=== PATIENT | female | born 1985 | race American Indian/Alaskan Native ===

== ENCOUNTER 2016-11-03 11:29 | Emergency (ER) | payer OTHER ==
[~2016-11-03] VITALS: Ht 165.1 cm; Wt 44.0 kg
[2016-11-03 16:23] VITALS: BP 97/67
== END 2016-11-03 16:23 | disposition home or self-care (01) ==
LOC: ED 11:29
DX: S06.0X9A Concussion with loss of consciousness of unspecified duration, initial encounter (principal); G43.909 Migraine, unspecified, not intractable, without status migrainosus; F41.9 Anxiety disorder, unspecified; F17.210 Nicotine dependence, cigarettes, uncomplicated; Z88.8 Allergy status to other drugs, medicaments and biological substances; Z79.899 Other long term (current) drug therapy; V49.50XA Passenger injured in collision with unspecified motor vehicles in traffic accident, initial encounter; Y93.89 Activity, other specified; Y92.89 Other specified places as the place of occurrence of the external cause; Y99.8 Other external cause status
CPT/HCPCS: J0780; J1885

== ENCOUNTER 2017-04-11 21:56 | Emergency (ER) | payer OTHER ==
[2017-04-11 22:50] LABS: CALCIUM 8.4 mg/dL (8.5-10.1); CARBON DIOXIDE 24.5 mmol/L (21-32); CHLORIDE SERUM 111 mmol/L (98-107); CREATININE SERUM 0.7 mg/dL (0.6-1.0); GFR1 > 60 mL/min; GLUCOSE SERUM 102 mg/dL (74-106); POTASSIUM SERUM 3.7 mmol/L (3.5-5.1); SODIUM SERUM 145 mmol/L (136-145)
[2017-04-12 03:52] VITALS: BP 95/58
== END 2017-04-12 03:52 | disposition home or self-care (01) ==
LOC: ED 21:56
PROVIDERS: Emergency Medicine
DX: F43.20 Adjustment disorder, unspecified (principal); F10.129 Alcohol abuse with intoxication, unspecified; R11.2 Nausea with vomiting, unspecified; Z88.8 Allergy status to other drugs, medicaments and biological substances
CPT/HCPCS: 36415; G0480; Q0162

== ENCOUNTER 2018-01-05 23:05 | Emergency (ER) | payer OTHER ==
[~2018-01-05] VITALS: Ht 165.1 cm; Wt 44.0 kg
[2018-01-05 23:09] VITALS: Ht 165.1 cm; Wt 44.0 kg
[2018-01-06 01:07] VITALS: BP 113/73
[2018-01-06 01:11] LABS: microscopic required? YES; urine erythrocyte TRACE (NEGATIVE)
== END 2018-01-06 01:19 | disposition home or self-care (01) ==
LOC: ED 23:05
PROVIDERS: Emergency Medicine
DX: N39.0 Urinary tract infection, site not specified (principal); Z88.8 Allergy status to other drugs, medicaments and biological substances
CPT/HCPCS: J3030

== ENCOUNTER 2018-04-05 10:33 | Emergency (ER) | payer OTHER ==
[~2018-04-05] VITALS: Ht 165.1 cm; Wt 43.7 kg
[2018-04-05 10:51] VITALS: Ht 165.1 cm; Wt 43.7 kg
[2018-04-05 12:27] LABS: BASOPHIL % 0.4 % (0-2); PLATELET COUNT 227 x10^3mcL (130-400); RED CELL DISTRIBUTION WIDTH 14.1 % (11.5-14.5)
[2018-04-05 12:40] LABS: CALCIUM 7.7 mg/dL (8.5-10.1); CARBON DIOXIDE 27.7 mmol/L (21-32); CHLORIDE SERUM 112 mmol/L (98-107); CREATININE SERUM 0.7 mg/dL (0.6-1.0); GFR1 > 60 mL/min; GLUCOSE SERUM 79 mg/dL (74-106); POTASSIUM SERUM 3.8 mmol/L (3.5-5.1); SODIUM SERUM 148 mmol/L (136-145)
[2018-04-05 12:45] LABS: ALBUMIN 3.5 g/dL (3.4-5.0); ALKALINE PHOSPHATASE 70 U/L (46-116); ALT/SGPT 24 U/L (14-59); AST/SGOT 18 U/L (15-37); BILIRUBIN TOTAL 0.31 mg/dL (0.20-1.00); TOTAL PROTEIN, SERUM 7.1 g/dL (6.4-8.2)
[2018-04-05 13:44] VITALS: BP 102/68
== END 2018-04-05 13:43 | disposition home or self-care (01) ==
LOC: ED 10:33
PROVIDERS: Emergency Medicine
DX: F07.81 Postconcussional syndrome (principal); F41.9 Anxiety disorder, unspecified; G43.909 Migraine, unspecified, not intractable, without status migrainosus; V43.62XA Car passenger injured in collision with other type car in traffic accident, initial encounter; Y93.89 Activity, other specified; Y92.89 Other specified places as the place of occurrence of the external cause; Y99.8 Other external cause status
CPT/HCPCS: J1885; J2765; J7030

== ENCOUNTER 2018-05-29 20:24 | Emergency (ER) | payer SELFPAY ==
[~2018-05-29] VITALS: Ht 165.1 cm; Wt 46.7 kg
[2018-05-29 20:41] VITALS: BP 118/75; Ht 165.1 cm; Wt 46.7 kg
== END 2018-05-29 21:22 | disposition home or self-care (01) ==
LOC: ED 20:24
DX: K02.9 Dental caries, unspecified (principal); J20.9 Acute bronchitis, unspecified; F41.9 Anxiety disorder, unspecified; G43.909 Migraine, unspecified, not intractable, without status migrainosus; Z88.8 Allergy status to other drugs, medicaments and biological substances

== ENCOUNTER 2019-08-28 13:05 | Emergency (ER) | payer SELFPAY ==
[~2019-08-28] VITALS: Ht 165.1 cm; Wt 49.4 kg
[2019-08-28 13:28] VITALS: Ht 165.1 cm; Wt 49.4 kg
[2019-08-28 15:01] VITALS: BP 108/75
== END 2019-08-28 14:59 | disposition home or self-care (01) ==
LOC: ED 13:05
DX: S39.012A Strain of muscle, fascia and tendon of lower back, initial encounter (principal); G43.909 Migraine, unspecified, not intractable, without status migrainosus; Z88.8 Allergy status to other drugs, medicaments and biological substances; X58.XXXA Exposure to other specified factors, initial encounter; Y93.89 Activity, other specified; Y92.89 Other specified places as the place of occurrence of the external cause; Y99.8 Other external cause status
CPT/HCPCS: J1885

== ENCOUNTER 2019-10-16 17:07 | Emergency (ER) | payer MEDICAID ==
[~2019-10-16] VITALS: Ht 165.1 cm; Wt 50.8 kg
[2019-10-16 17:17] VITALS: Ht 165.1 cm; Wt 50.8 kg
[2019-10-16 17:44] LABS: CALCIUM 8.7 mg/dL (8.5-10.1); CARBON DIOXIDE 26.5 mmol/L (21-32); CHLORIDE SERUM 99 mmol/L (98-107); CREATININE SERUM 1.1 mg/dL (0.6-1.0); GFR1 > 60 mL/min; GLUCOSE SERUM 97 mg/dL (74-106); POTASSIUM SERUM 3.9 mmol/L (3.5-5.1); SODIUM SERUM 135 mmol/L (136-145)
[2019-10-16 17:49] LABS: ALBUMIN 4.1 g/dL (3.4-5.0); ALKALINE PHOSPHATASE 70 U/L (46-116); ALT/SGPT 25 U/L (14-59); AST/SGOT 17 U/L (15-37); BILIRUBIN TOTAL 0.4 mg/dL (0.20-1.00)
[2019-10-16 17:50] LABS: TOTAL PROTEIN, SERUM 8.3 g/dL (6.4-8.2)
[2019-10-16 17:53] LABS: BASOPHIL % 0.8 % (0-2); PLATELET COUNT 275 x10^3mcL (130-400)
[2019-10-16 17:57] LABS: RED CELL DISTRIBUTION WIDTH 14.9 % (11.5-14.5)
[2019-10-16 20:57] VITALS: BP 120/68
== END 2019-10-16 20:30 | disposition home or self-care (01) ==
LOC: ED 17:07
PROVIDERS: Emergency Medicine
DX: O26.891 Other specified pregnancy related conditions, first trimester (principal); R21 Rash and other nonspecific skin eruption; R10.30 Lower abdominal pain, unspecified; G43.909 Migraine, unspecified, not intractable, without status migrainosus; Z3A.01 Less than 8 weeks gestation of pregnancy
CPT/HCPCS: 36415

== ENCOUNTER 2020-02-01 01:47 | Emergency (ER) | payer OTHER ==
[~2020-02-01] VITALS: Ht 165.1 cm; Wt 50.3 kg
[2020-02-01 01:54] VITALS: Ht 165.1 cm; Wt 50.3 kg
[2020-02-01 07:11] VITALS: BP 98/67
== END 2020-02-01 07:11 | disposition short-term general hospital (02) ==
LOC: ED 01:47
DX: O45.92 Premature separation of placenta, unspecified, second trimester (principal); S09.90XA Unspecified injury of head, initial encounter; Z3A.21 21 weeks gestation of pregnancy; Z88.8 Allergy status to other drugs, medicaments and biological substances; Y04.2XXA Assault by strike against or bumped into by another person, initial encounter; Y93.89 Activity, other specified; Y92.89 Other specified places as the place of occurrence of the external cause; Y99.8 Other external cause status
CPT/HCPCS: J7030; Q0092

== ENCOUNTER 2020-07-21 01:49 | Emergency (ER) | payer OTHER, SELFPAY ==
[~2020-07-21] VITALS: Ht 165.1 cm; Wt 46.3 kg
[2020-07-21 01:52] VITALS: BP 136/90; Ht 165.1 cm; Wt 46.3 kg
== END 2020-07-21 02:39 | disposition home or self-care (01) ==
LOC: ED 01:49
DX: K02.9 Dental caries, unspecified (principal); G43.909 Migraine, unspecified, not intractable, without status migrainosus; Z20.828 Contact with and (suspected) exposure to other viral communicable diseases; Z88.2 Allergy status to sulfonamides
CPT/HCPCS: J0561; U0003

== ENCOUNTER 2020-10-20 23:45 | Emergency (ER) | payer OTHER ==
[~2020-10-20] VITALS: Ht 167.6 cm; Wt 65.8 kg
[2020-10-20 23:58] VITALS: Ht 167.6 cm; Wt 65.8 kg
[2020-10-21 00:47] LABS: CALCIUM 8.7 mg/dL (8.5-10.1); CARBON DIOXIDE 25.8 mmol/L (21-32); CHLORIDE SERUM 107 mmol/L (98-107); CREATININE SERUM 0.8 mg/dL (0.6-1.0); GFR1 > 60 mL/min; GLUCOSE SERUM 101 mg/dL (74-106); POTASSIUM SERUM 3.9 mmol/L (3.5-5.1); SODIUM SERUM 145 mmol/L (136-145)
[2020-10-21 00:53] LABS: ALKALINE PHOSPHATASE 99 U/L (46-116); ALT/SGPT 52 U/L (14-59); AST/SGOT 40 U/L (15-37); BILIRUBIN TOTAL 0.2 mg/dL (0.20-1.00); TOTAL PROTEIN, SERUM 8.1 g/dL (6.4-8.2)
[2020-10-21 00:57] LABS: BASOPHIL % 0.8 % (0.2-1.3); PLATELET COUNT 313 x10^3mcL (179-408); RED CELL DISTRIBUTION WIDTH 12.6 % (12.3-17.7)
[2020-10-21 01:05] LABS: rbc morphology (normal/abnorm) NORMAL (NORMAL)
[2020-10-21 01:50] VITALS: BP 127/69
== END 2020-10-21 01:50 | disposition home or self-care (01) ==
LOC: ED 23:45
PROVIDERS: Emergency Medicine
DX: F10.129 Alcohol abuse with intoxication, unspecified (principal); G43.909 Migraine, unspecified, not intractable, without status migrainosus; Z88.8 Allergy status to other drugs, medicaments and biological substances
CPT/HCPCS: G0480; Q0162